=== PATIENT | female | born 1975 | race Caucasian/White ===

== ENCOUNTER → 2020-11-17 | Outpatient (REF) | payer BC | LOC: M LAB REF 16:18 | PROVIDERS: ATTEND Internal Medicine | DX: M25.50 Pain in unspecified joint (principal) ==

== ENCOUNTER 2021-04-21 07:45 | Outpatient (RCR) | payer BC | END 2021-04-25 | LOC: M PT 07:45 | PROVIDERS: ATTEND Orthopaedic Surgery Sports Medicine | DX: M77.12 Lateral epicondylitis, left elbow (principal) ==

== ENCOUNTER 2021-05-19 07:43 | Outpatient (RCR) | payer OTHER, BC | END 2021-05-25 | LOC: M PT 07:43 | PROVIDERS: ATTEND Orthopaedic Surgery Sports Medicine | DX: M77.12 Lateral epicondylitis, left elbow (principal) ==

== ENCOUNTER 2021-05-27 08:48 | Outpatient (RCR) | payer BC | END 2021-06-25 | LOC: M PT 08:48 | PROVIDERS: ATTEND Orthopaedic Surgery Sports Medicine | DX: M77.12 Lateral epicondylitis, left elbow (principal) ==

== ENCOUNTER → 2021-09-23 | Outpatient (CLI) | payer BC ==
[~2021-09-23] MED LIST: ALLE12TA31 PO; HYDR50TA70 PO; PSEU30TA86 PO
== END ==
LOC: M LABSMTC 09:14
PROVIDERS: ATTEND Anesthesiology
DX: Z01.812 Encounter for preprocedural laboratory examination (principal); Z20.822 Contact with and (suspected) exposure to COVID-19

== ENCOUNTER 2021-09-28 13:35 | Day surgery (SDC) | payer BC ==
[~2021-09-28] VITALS: Ht 162.6 cm; Wt 81.6 kg
[~2021-09-28 13:35] MED LIST changes: +NS 1,000 ML IV ONE
[2021-09-28] MEDS ORDERED: propofoL 200 MG/20 ML VIAL As Ordered ONE (15:11)
[2021-09-28] MEDS ORDERED: LIDOCAINE 2% 100MG/5ML SDV (FOR ANES.) As Ordered ONE (15:11)
[2021-09-28 16:29] VITALS: BP 104/60
== END 2021-09-28 16:41 | disposition home or self-care (01) ==
LOC: M OPP 13:35
PROVIDERS: ATTEND Internal Medicine Gastroenterology
DX: Z12.11 Encounter for screening for malignant neoplasm of colon (principal); Z80.0 Family history of malignant neoplasm of digestive organs; K63.5 Polyp of colon; K64.8 Other hemorrhoids; R13.14 Dysphagia, pharyngoesophageal phase; R12 Heartburn; Z88.0 Allergy status to penicillin; F17.210 Nicotine dependence, cigarettes, uncomplicated

== ENCOUNTER → 2022-07-08 | Outpatient (REF) | payer BC ==
[~2022-07-08] MED LIST changes: -NS 1,000 ML IV ONE
[2022-07-08 14:05] LABS: FOLLICLE STIMULATING HORMONE 69.4 mIU/ML; LUTEINIZING HORMONE 46.2 mIU/ML
[2022-07-08 14:06] LABS: PROGESTERONE 0.33 NG/ML
== END ==
LOC: M LAB REF 12:21
PROVIDERS: ATTEND Internal Medicine
DX: N95.9 Unspecified menopausal and perimenopausal disorder (principal)

== ENCOUNTER → 2023-01-09 | Outpatient (CLI) | payer BC | LOC: M WUC 09:50 | PROVIDERS: ATTEND Internal Medicine | DX: M25.511 Pain in right shoulder (principal); M19.011 Primary osteoarthritis, right shoulder ==

== ENCOUNTER → 2023-04-26 | Outpatient (CLI) | payer BC | LOC: M SLEEP HO 10:19 | PROVIDERS: ATTEND Physician Assistant | DX: R40.0 Somnolence (principal); R06.83 Snoring ==